=== PATIENT | male | born 1975 | race Caucasian/White ===

== ENCOUNTER 2022-05-05 06:05 | Day surgery (SDC) | payer OTHER ==
[~2022-05-05] VITALS: Ht 170.2 cm; Wt 68.2 kg
--- NOTE | ~2022-05-05 | OR ---
[facility] [address], [place] [address] Draft DATE OF OPERATION: 05/05/2022 SURGEON: Macy Walker MD PREOPERATIVE DIAGNOSIS: Medial meniscus tear, left knee. POSTOPERATIVE DIAGNOSIS: Medial meniscus tear, left knee. PROCEDURE PERFORMED: Left knee arthroscopy with partial medial meniscectomy. 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 ANESTHESIA: General. BLOOD LOSS: Minimal. 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 He injured his knee and had an MRI there, which showed a medial meniscus tear. He wished to have it debrided. Risks and benefits of operative treatment were discussed with him, he elected to proceed. Once consent was obtained, he was taken to the operating room after adequate anesthesia, he was placed on operating table. The right leg was flexed, abducted, and externally rotated on a well-padded leg page. The left was placed in well-padded leg page and prepped and draped in a standard sterile fashion. Portal sites injected with 0.25% Marcaine with epinephrine. The standard inferolateral and superolateral portals were made. The scope was introduced. ARTHROSCOPIC FINDINGS: The patella showed grade 1 chondromalacia. There was [id number] synovitis throughout the knee. 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 Medial and lateral gutters were clear. ACL and PCL were intact. Lateral compartment was intact with only minor grade 2 changes to a small portion of the lateral femoral PATIENT NAME: JASON VELAZQUEZ OPERATIVE REPORT DATE OF : 77 REPORT #: [id number] PHYSICIAN: MACY WALKER MD PCP: NO PRIMARY CARE PHYSICIAN REPORT IS CONFIDENTIAL AND NOT TO BE RELEASED WITHOUT AUTHORIZATION [facility] [address] [place] [id number] Draft condyle. The medial compartment showed diffuse grade 2 changes to the medial femoral condyle and grade 1 changes on the tibial side. There was a complex tear starting just anterior to the posteromedial corner and extending all the way posteriorly. There were horizontal and radial components with a small piece missing. DESCRIPTION OF PROCEDURE: Standard inferomedial portal was made after localization using a spinal needle. The straight and curved biters were used to trim the meniscus tear back to a stable rim and the shaver was then used to smooth this and further out the anterior portion. All debris was evacuated. The scope was withdrawn. Portals were closed with 3-0 Monocryl and Steri-Strips. The knee was injected with 60 mg Toradol. The wounds were then dressed with Adaptic ABD and Justin wrap. He tolerated the procedure well. All sponge, needle, and instrument counts were correct. Macy Walker MD BA/ROMEO /[id number] Copies: ~ PATIENT NAME: MARCUSJASON KU OPERATIVE REPORT DATE OF : 77 REPORT #: [id number] PHYSICIAN: MACY WALKER MD PCP: NO PRIMARY CARE PHYSICIAN REPORT IS CONFIDENTIAL AND NOT TO BE RELEASED WITHOUT AUTHORIZATION
[~2022-05-05 06:05] MED LIST: CHEWABLE MULTI1 EAC1 PO; MIRALAX119 GM PO; NORCO 5-325 TA1 EACH PO; ZYRTEC10 MG PO
--- NOTE | 2022-05-05 06:16 | NUR ---
COVID 19 SWAB DONE AND SENT TO IN HOUSE LAB.
[2022-05-05] MEDS ORDERED: DICLOFENAC SODI75 MG PO (10:23)
--- NOTE | 2022-05-05 10:23 | NUR ---
05/05/22 1023 Zaida Jarvis 1020 PATIENT ARRIVES TO PACU SLEEPING, OPENS EYES WITH VERBAL STIMULI. BACK TO SLEEP WHEN NOT STIMULATED. RESP EVEN AND UNLABORED, MASK AT 6 LITERS.
[2022-05-05] MEDS ORDERED: HYDROCODON-ACE1 EA10 PO (10:24)
--- NOTE | 2022-05-05 10:59 | NUR ---
[id number] PATIENT BACK FROM PACU. REPORT RECIEVED FROM MIKA HU. PATIENT IS ALERT AND ORIENTED. BREATHING EQUAL AND UNLABORED. OXYGEN SATURATIONS ARE 95% ON ROOM AIR. DRESSING CLEAN, DRY AND INTACT. SCD'S ON. IVF INFUSING. PATIENT CMST INTACT. PATIENT AT BEDSIDE. PATIENT DENIES ANY PAIN OR DISCOMFORT. CALL LIGHT WITHIN REACH NO FUTHER NEEDS. NO QUESTIONS AT THIS TIME.
--- NOTE | 2022-05-05 11:55 | NUR ---
PATIENT IS ALERT AND ORIENTED. BREATHING EQUAL AND UNLABORED. OXYGEN SATRUATIONS ABOVE 95%. PATIENT DRESSING IS CLEAN, DRY AND INTACT. PATIENT MET DISCHARGE CRITERIA. PATIENT WAS ABLE TO EAT, DRINK AND VOID. PAIN IS AT A 3/10 AND TOLERABLE. DISCHARGE INSTRUCTIONS GIVEN AND UNDERSTOOD. NO QUESTIONS AT THIS TIME. D/C'D IV WNL. PATIENT WAS WHEELED OUT OF FACILITY TO PRIVATE AUTO WITH HIS .
== END 2022-05-05 11:55 | disposition home or self-care (01) ==
LOC: DS 06:05
PROVIDERS: ATTEND Specialist
PROC: 0SBD4ZZ Excision of Left Knee Joint, Percutaneous Endoscopic Approach (ICD-10-PCS; principal; 2022-05-05 10:15)
DX: S83.232A Complex tear of medial meniscus, current injury, left knee, initial encounter (principal); M94.262 Chondromalacia, left knee; Z86.16 Personal history of COVID-19; Z20.822 Contact with and (suspected) exposure to COVID-19; X58.XXXA Exposure to other specified factors, initial encounter; Y93.67 Activity, basketball
CPT/HCPCS: 36415; 80048; 85025; 87502; C9803; J0131; J0690; J1100; J1885; J2001; J2405; J2704; J3010; J7121; U0003